=== PATIENT | male | born 1975 | race Caucasian/White ===

== ENCOUNTER 2018-07-02 11:48 | Outpatient (CLI) | payer OTHER, SELFPAY ==
[2018-07-02 12:23] LABS: Abs Immature Grans 0.02 k/cumm (0.0-0.09); Absolute Basophil Count 0.02 k/cumm (0.0-0.2); Absolute Eosinophil Count 0.18 k/cumm (0.0-0.7); Absolute Lymphocyte Count 0.43 k/cumm (1.2-3.4); Absolute Monocyte Count 1.11 k/cumm (0.11-0.7); Absolute Neutrophil Count 3.85 k/cumm (1.2-6.7); Basophils % 0.4; Eosinophils % 3.2; HCT 40.2 % (40.0-50.0); Immature Grans % 0.4; Lymphocytes % 7.7; Mean Corp. HGB Concentration 34.8 g/dL (32.0-36.0); Mean Corpuscular Volume 89.1 fL (80-95); Mean Platelet Volume 9.8 fL (8.0-11.0); Monocytes % 19.8; Neutrophils % 68.5; Platelet Count 229 x1000/uL (130-400); RBC 4.51 m/cumm (4.50-6.00); RBC Distribution Width 12.8 % (11.8-14.1); White Blood Cell Count 5.61 k/cumm (4.4-10.8)
== END 2018-07-02 11:49 ==
PROVIDERS: PCP Family Medicine; Visit Provider Psychiatry & Neurology Neurology
DX: G35 Multiple sclerosis (principal)
CPT/HCPCS: 36415; 85025

== ENCOUNTER 2018-09-23 01:04 | Outpatient (CLI) | payer OTHER, SELFPAY ==
[2018-09-23] MEDS: Gadoterate meglumine 20 ML VIAL IVP (15:49)
--- NOTE | 2018-09-23 16:10 | DI.MRI_ITS ---
SYMPTOM/DIAGNOSIS: NEW BILATERAL EYE PAIN BRAIN MRI: 09/23/18 MRI examination of the brain was performed according to the usual protocol with additional post contrast axial and coronal T1 weighted imaging. There was significant motion artifact on all pulse sequences obtained which limits interpretation of the examination. The current examination is compared with previous examination of 08/19/16. Note is again made of right occipital paraventricular white matter, signal abnormality, grossly unchanged from the previous examination allowing for slight differences in slice orientation. A few other tiny areas of abnormal signal are also seen on T2 weighted and flair imaging most easily seen in prieto radiata on the right just above the level of the occipital lesion and also peripherally in the prieto radiata on the left in the parietal occipital region. No enhancing lesions seen. No mass lesion seen. Optic nerves poorly visualized but grossly intact. Diffusion weighted imaging shows no evidence of infarction. Susceptibility weighted imaging shows no evidence of intracranial hemorrhage. CONCLUSION: Stable bilateral white matter lesions as described above. No change from 08/2016
[2018-09-23 18:43] LABS: Abs Immature Grans 0.01 k/cumm (0.0-0.09); Absolute Basophil Count 0.02 k/cumm (0.0-0.2); Absolute Eosinophil Count 0.15 k/cumm (0.0-0.7); Absolute Lymphocyte Count 0.37 k/cumm (1.2-3.4); Absolute Monocyte Count 0.91 k/cumm (0.11-0.7); Absolute Neutrophil Count 3.42 k/cumm (1.2-6.7); Basophils % 0.4; Eosinophils % 3.1; HCT 39.7 % (40.0-50.0); HGB 13.6 g/dL (13.5-17.5); Immature Grans % 0.2; Lymphocytes % 7.6; Mean Corp. HGB Concentration 34.3 g/dL (32.0-36.0); Mean Corpuscular Volume 90.4 fL (80-95); Mean Platelet Volume 10.4 fL (8.0-11.0); Monocytes % 18.6; Neutrophils % 70.1; Platelet Count 241 x1000/uL (130-400); RBC 4.39 m/cumm (4.50-6.00); RBC Distribution Width 13.2 % (11.8-14.1); White Blood Cell Count 4.88 k/cumm (4.4-10.8)
== END 2018-09-23 01:24 ==
PROVIDERS: PCP Family Medicine; Visit Provider Psychiatry & Neurology Neurology
DX: H57.13 Ocular pain, bilateral (principal); G35 Multiple sclerosis
CPT/HCPCS: 36415; 70553; 85025

== ENCOUNTER 2019-03-16 14:14 | Outpatient (CLI) | payer OTHER, SELFPAY ==
[2019-03-16 15:14] LABS: Hemoglobin A1C 5.1 % (4.5-6.2)
[2019-03-16 15:38] LABS: CREATININE 1.49 mg/dL (0.70-1.30); Cholesterol 269 mg/dL (50-200); Estimated GFR 51.23 (mL/min/1.73m2); HDL Cholesterol 23 mg/dL (40-60); LDL CHOLESTEROL 171 mg/dL (<100); Triglyceride 605 mg/dL (30-150)
[2019-03-17 14:13] LABS: ALT 118 U/L (12-78); Albumin 4.4 g/dL (3.4-5.0); Alkaline Phosphatase 178 U/L (46-116)
[2019-03-17 14:40] LABS: AST 38 U/L (15-37)
== END 2019-03-16 14:34 ==
PROVIDERS: PCP Family Medicine; Visit Provider Family Medicine
DX: I10 Essential (primary) hypertension (principal); R73.9 Hyperglycemia, unspecified; E66.3 Overweight
CPT/HCPCS: 36415; 80061; 80076; 83721; 82040; 82565; 83036; 84075; 84450; 84460

== ENCOUNTER 2019-04-08 15:54 | Outpatient (CLI) | payer OTHER, SELFPAY ==
[2019-04-08 16:25] LABS: Abs Immature Grans 0.01 k/cumm (0.0-0.09); Absolute Basophil Count 0.02 k/cumm (0.0-0.2); Absolute Eosinophil Count 0.18 k/cumm (0.0-0.7); Absolute Lymphocyte Count 0.43 k/cumm (1.2-3.4); Absolute Neutrophil Count 3.59 k/cumm (1.2-6.7); Basophils % 0.4; Eosinophils % 3.7; HCT 39.6 % (40.0-50.0); HGB 14.2 g/dL (13.5-17.5); Immature Grans % 0.2; Lymphocytes % 8.9; Mean Corp. HGB Concentration 35.9 g/dL (32.0-36.0); Mean Corpuscular Hemoglobin 31.3 pg (27.0-33.0); Mean Corpuscular Volume 87.2 fL (80-95); Mean Platelet Volume 9.9 fL (8.0-11.0); Monocytes % 12.4; Neutrophils % 74.4; Platelet Count 231 x1000/uL (130-400); RBC 4.54 m/cumm (4.50-6.00); RBC Distribution Width 12.5 % (11.8-14.1); White Blood Cell Count 4.83 k/cumm (4.4-10.8)
[2019-04-12 07:55] LABS: JC Virus DNA, QN <500 copies/mL; Source PLASMA
== END 2019-04-08 16:14 ==
PROVIDERS: PCP Family Medicine; Visit Provider Psychiatry & Neurology Neurology
DX: G35 Multiple sclerosis (principal)
CPT/HCPCS: 36415; 87799; 85025

== ENCOUNTER 2019-05-26 13:55 | Outpatient (CLI) | payer OTHER, SELFPAY ==
--- NOTE | 2019-05-26 09:30 | DI.RAD_ITS ---
SYMPTOM/DIAGNOSIS: LT KNEE PAIN LEFT KNEE: No bony or joint abnormality is demonstrated.
== END 2019-05-26 14:15 ==
PROVIDERS: PCP Family Medicine; Visit Provider Physician Assistant
DX: M25.562 Pain in left knee (principal)
CPT/HCPCS: 73562